=== PATIENT | female | born 1965 | race Hispanic/Latino ===

== ENCOUNTER 2017-11-23 11:53 | Emergency (ER) | payer OTHER, SELFPAY ==
[2017-11-23 12:15] LABS: Bilirubin Negative (Negative); Blood, Urine Negative (Negative); Clarity CLOUDY (Clear); Glucose, Urine (Dipstick) Negative (Negative); Leukocyte Moderate (Negative); Nitrite Negative (Negative); Protein, Urine (Dipstick) Negative (Neg-Trace); Specific Gravity, Urine 1.018 (1.002-1.036); Urobilinogen 0.2 mg/dL (0.2-1.0); pH, Urine 7.5 (5.0-9.0)
[2017-11-23 12:20] LABS: Bacteria/HPF 1+ HPF (None Seen); Hyaline Casts/LPF 0-3 HYALINE CAST LPF (0-3 Hyaline); Pathc Cast-AUWi Flag 0.29 (0-2.49); WBC/HPF 21-50 HPF (0-3)
--- NOTE | 2017-11-23 13:21 | CT ---
CT LUMBAR SPINE WITHOUT CONTRAST: Date: 11/23/17 HISTORY: Back pain, vertebral tenderness. FINDINGS: The vertebral body heights are maintained. Degenerative changes are present, most prominent in the lo wer lumbar spine. There is vacuum disc phenomenon at L5-S1 level. No fracture, subluxation, or bony d estruction is identified. Mild broad based disc bulges are noted at L4-5 and l5-S1 level. No signific ant central canal or neural foraminal stenosis is seen. IMPRESSION: Lumbar spondylosis without evidence of fracture or subluxation. POS: [facility]
== END 2017-11-23 14:01 | disposition home or self-care (01) ==
LOC: ERS 11:53
DX: N39.0 Urinary tract infection, site not specified (principal); I10 Essential (primary) hypertension; F17.210 Nicotine dependence, cigarettes, uncomplicated
CPT/HCPCS: 72131; 81003; 81015; 87086